=== PATIENT | male | born 2005 | race Caucasian/White ===

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

== ENCOUNTER 2023-07-30 17:18 | Outpatient (CLI) | payer OTHER, SELFPAY ==
--- NOTE | 2023-07-30 18:15 | MR_ITS ---
[address] [address] Phone:?[phone] Fax:?[phone] Referring Physician Information: Cabrera Calderon M.D. [address] [facility] [address] Phone:?[phone] Fax:?[phone] Patient:?Manohar Rosario D.O.B:?2005 Sex:?Male Phone:?[phone] [facility] MRN:?[id number] Exam Date:?07/30/2023 EXAM: MRI of the RIGHT KNEE, without contrast CLINICAL INFORMATION: Male, 18 years old, with right knee pain. INDICATION: Evaluate for internal derangement. PRIOR SURGERY: None reported. PLAIN FILMS: None available. COMPARISONS: No prior MRIs available. TECHNICAL INFORMATION: Using a 1.5T MR scanner and a localizing surface coil: sagittals: PD, PDFS coronals: PD, STIR axials: PD, T2FS SEDATION: None CONTRAST: None FINDINGS: Knee joint: Effusion: Large right knee effusion. Popliteal cyst: None. Loose bodies: None. Subcutaneous and extra-articular soft tissues: Unremarkable. Ligaments: ACL: Full-thickness disruption of the ACL (sagittal PD series 5 images 15-17). PCL: Intact PCL, without acute or chronic injury. MCL: Moderate periligamentous edema is present along the superficial and deep surfaces of the superficial MCL (coronal STIR series 8 image 18). There is also abnormal signal and poorly defined partial-thickness tearing of the meniscofemoral component of the deep MCL (coronal STIR series 8 images 17-20). LCL: Intact LCL, without injury. Posterolateral corner: No posterolateral corner soft tissue injury. Popliteus, biceps femoris, iliotibial band, popliteofibular ligament and lateral gastrocnemius are intact. Posteromedial corner: No posteromedial corner soft tissue injury. Semimembranosus, pes anserine tendons and posterior oblique ligament are without injury, tendinopathy or bursitis. Extensor mechanism: Patellar tendon: Intact, without tendinopathy. Quadriceps tendon: Intact, without tendinopathy. Retinacula: Medial and lateral retinacula are intact. Fat pads: Mild edema-like signal is present throughout the knee fat pads, in keeping with synovitis. Medial compartment: Medial meniscus: Abnormal signal and irregularity is present throughout the posterior meniscocapsular junction, without a discrete tear. No articular surface or root tear. Medial femoral condyle: No chondromalacia or osteochondral abnormality. Medial tibial plateau: No chondromalacia or osteochondral abnormality. Lateral compartment: Lateral meniscus: Partial thickness radial tearing is present at the anterior horn/body junction involving the inner one third of the meniscus over a length of 5 mm (axial T2FS series 4 image 22, sagittal PDFS series 6 images 8 & 9 and coronal STIR series 8 image 19). No meniscal extrusion or parameniscal cyst. Lateral femoral condyle: No chondromalacia or osteochondral abnormality. Lateral tibial plateau: No chondromalacia or osteochondral abnormality. Patellofemoral joint: Patella: No chondromalacia or osteochondral abnormality. Trochlea: No chondromalacia or osteochondral abnormality. Proximal tibiofibular joint: Unremarkable, without evidence of ligament sprain injury, joint effusion or adjacent marrow edema. Bones: Moderate edema-like signal is present in the anterior aspect of the lateral femoral condyle and posterior aspects of the medial and lateral tibial plateau. IMPRESSION: 1. Full-thickness disruption of the ACL with typical pivot shift osseous contusions. 2. Partial thickness radial tearing involving the inner one third of the lateral meniscus at the anterior horn/body junction over a length of 5 mm. 3. Posterior meniscocapsular junction sprain of the medial meniscus. Attention to this site at the time of arthroscopy is recommended to evaluate for an occult fracture or lesion. 4. Grade 1 sprain of the superficial MCL with abnormal signal and partial tearing of the meniscofemoral component of the deep MCL. 5. Large knee joint effusion, with evidence of synovitis. No popliteal (Mcguire's) cyst. 6. No PCL or LCL sprain/tear. 7. No chondromalacia or osteochondral lesion/defect. BC Electronically signed on 07/31/2023 7:42:00 AM by Gorge Francisco M.D.
== END 2023-07-30 17:19 | disposition home or self-care (01) ==
PROVIDERS: Visit Provider Family Medicine
DX: M25.561 Pain in right knee (principal); S80.01XA Contusion of right knee, initial encounter; S83.281A Other tear of lateral meniscus, current injury, right knee, initial encounter; S83.411A Sprain of medial collateral ligament of right knee, initial encounter; M25.461 Effusion, right knee
CPT/HCPCS: 73721

== ENCOUNTER 2025-06-08 19:00 | Outpatient (CLI) | payer OTHER, SELFPAY | END 2025-06-08 19:01 | disposition home or self-care (01) | LOC: NFLDUCREF 19:01 | PROVIDERS: Visit Provider Physician Assistant Surgical | DX: L08.9 Local infection of the skin and subcutaneous tissue, unspecified (principal); B95.61 Methicillin susceptible Staphylococcus aureus infection as the cause of diseases classified elsewhere | CPT/HCPCS: 87070; 87186 ==